=== PATIENT | female | born 2000 | race African-American/Black ===

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

== ENCOUNTER 2018-05-16 15:33 | Inpatient (IN) ==
[2018-05-16] MEDS ORDERED: LACTATED RINGERS 250 ML IV ONE (17:02)
[2018-05-16] MEDS ORDERED: LACTATED RINGERS 500 ML IV PRN (17:02)
[2018-05-16] MEDS ORDERED: ACETAMINOPHEN 325 MG TABLET PO PRN (17:02)
[2018-05-16] MEDS ORDERED: ONDANSETRON 4 MG/2 ML VIAL IV PRN (17:02)
[2018-05-16] MEDS ORDERED: MEPERIDINE 50 MG/1 ML VIAL IV PRN (17:02)
[2018-05-16] MEDS ORDERED: BUTORPHANOL 2 MG/ML VIAL IV PRN (17:02)
[2018-05-16] MEDS ORDERED: PENICILLIN G POTASSIUM INJ 5,000,000 UNIT in SODIUM CHLORIDE 0.9% 100 ML IV ONE (17:06)
[2018-05-16] MEDS ORDERED: PENICILLIN G POTASSIUM INJ 6,000,000 UNIT in SODIUM CHLORIDE 0.9% 100 ML IV ONE (17:10)
[2018-05-16 17:27] LABS: Apearance,Urine Slightly Hazy (Clear); Bilirubin,Urine Negative (Negative); Blood, Urine Negative (Negative); Glucose,Urine (UA) Negative (Negative); Ketones,Urine Negative (Negative); Mucus,Urine Many /LPF (Occasional); Nitrite,Urine Negative (Negative); Protein,Urine 30 MG/DL; RBC,Urine 6 /HPF (0-4); Squamous Epithelial Cell,Urine Occasional /HPF (0-10); Urine Color Amber (Yellow); Urine Specific Gravity 1.027 (1.001-1.035); WBC,Urine 20 /HPF (0-6)
[2018-05-16] MEDS: LACTATED RINGERS 1,000 ML IV SCH ×2 (17:30→20:24)
[2018-05-16] MEDS: OXYTOCIN/LR 20 UNIT/1,000 ML BAG IV SCH (17:35)
[2018-05-16 18:11] LABS: Basophils % 0.2 % (0.0-0.8); Eosinophils % 0.3 % (0.00-10.9); Hematocrit 27.1 VOL% (35.7-47.0); Hemoglobin 7.8 GM/DL (12.0-16.0); Immature Granulocytes % 0.8 %; Immature Granulocytes Absolute 0.09 #; Lymphocytes # 2.1 10*3/uL (1.4-4.0); Lymphocytes % 19.1 % (21.3-54.2); Mean Corpuscular HGB Conc 28.8 GM/DL (32-36); Mean Corpuscular Hemoglobin 19 PG (27-34); Mean Corpuscular Volume 67.4 FL (87-102); Mean Platelet Volume 9.8 FL (9.6-12.0); Monocytes # 0.9 10*3/uL (0.11-0.8); NRBC # 0.04 10*3/uL; Neutrophils # 7.8 10*3/uL (1.4-7.4); Neutrophils % 71.6 % (38.7-73.9); Platelet Count 320 T/CUMM (130-400); Red Blood Count 4.02 MC/CUMM (3.8-5.5); Red Cell Distribution Width 18.1 % (9.3-17.3); White Blood Count 10.9 T/CUMM (4-12)
[2018-05-16 18:36] LABS: Albumin 2.7 G/DL (3.4-5.0); Calcium 8.7 MG/DL (8.5-10.1); Osmolality,Calculated 270.8 MOS/KG (273-304); Potassium 3.6 MMOL/L (3.5-5.1)
[2018-05-16] MEDS ORDERED: CITRIC ACID/SODIUM CITRATE 30 ML UDCUP PO ONE (19:36)
[2018-05-16] MEDS ORDERED: FAMOTIDINE 20 MG/2 ML VIAL IV ONE (19:36)
[2018-05-16 19:42] LABS: Hypochromasia 2+; Microcytosis 1+; Platelet Estimate Adequate
[2018-05-16] MEDS ORDERED: fentaNYL 2 MCG/ROPIV 0.2% EPID 100 ML EPIDURAL SCH (20:00)
[2018-05-16] MEDS ORDERED: miSOPROStol 200 MCG TABLET ONE (20:16)
[2018-05-16] MEDS ORDERED: LIDOCAINE 1% 50 ML VIAL ONE (20:16)
[2018-05-16] MEDS ORDERED: ePHEDrine 50 MG/ML AMP ONE (20:17)
[2018-05-16 22:12] LABS: Apearance,Urine CLEAR (Clear); Bacteria,Urine Occasional /HPF (Few); Bilirubin,Urine Negative (Negative); Blood, Urine Negative (Negative); Glucose,Urine (UA) Negative (Negative); Ketones,Urine 5 mg/dL (Negative); Mucus,Urine Occasional /LPF (Occasional); Nitrite,Urine Negative (Negative); Protein,Urine Negative; RBC,Urine <1 /HPF (0-4); Squamous Epithelial Cell,Urine Occasional /HPF (0-10); Urine Color Yellow (Yellow); Urine Specific Gravity 1.031 (1.001-1.035); WBC,Urine <1 /HPF (0-6)
[2018-05-16] MEDS: PENICILLIN G POTASSIUM INJ 3,000,000 UNIT in SODIUM CHLORIDE 0.9% 100 ML IV SCH (22:26)
[2018-05-17] MEDS: PENICILLIN G POTASSIUM INJ 3,000,000 UNIT in SODIUM CHLORIDE 0.9% 100 ML IV SCH (02:05)
[2018-05-17] MEDS ORDERED: OXYTOCIN/LR 30 UNIT/1,000 ML BAG IV ONE (02:32)
[2018-05-17] MEDS ORDERED: RHO(D) IMMUNE GLOBULIN 300 MCG SYRINGE IM ONE (03:44)
[2018-05-17] MEDS ORDERED: BISACODYL 10 MG SUPP RECTAL PRN (03:44)
[2018-05-17] MEDS ORDERED: WITCH HAZEL PADS 100/JAR TOP PRN (03:44)
[2018-05-17] MEDS ORDERED: DIPH/TET/ACEL PERT BOOSTER VACCINE 0.5 ML VIAL IM ONE (03:44)
[2018-05-17] MEDS ORDERED: ACETAMINOPHEN 325 MG TABLET PO PRN (03:44)
[2018-05-17] MEDS ORDERED: HYDROCORTISONE 2.5% RECTAL CREAM 30 GM TUBE TOP PRN (03:44)
[2018-05-17] MEDS ORDERED: MEASLES/MUMPS/RUBELLA VACCINE 0.5 ML VIAL SUBCUT ONE (03:44)
[2018-05-17] MEDS ORDERED: LANOLIN 50% CREAM 0.3 OZ TUBE TOP PRN (03:44)
[2018-05-17] MEDS ORDERED: oxyCODONE/ACETAMINOPHEN 5-325 MG TABLET PO PRN (03:44)
[2018-05-17] MEDS ORDERED: BENZOCAINE 20%/MENTHOL 0.5% SPRAY 56 GM CAN TOP PRN (03:44)
[2018-05-17] MEDS: IBUPROFEN 800 MG TABLET PO SCH ×4 (03:54→23:07)
[2018-05-17 05:29] LABS: Basophils % 0.3 % (0.0-0.8); Eosinophils % 0.3 % (0.00-10.9); Hematocrit 25.8 VOL% (35.7-47.0); Hemoglobin 7.3 GM/DL (12.0-16.0); Immature Granulocytes % 0.6 %; Immature Granulocytes Absolute 0.09 #; Lymphocytes # 2.5 10*3/uL (1.4-4.0); Lymphocytes % 17.4 % (21.3-54.2); Mean Corpuscular HGB Conc 28.3 GM/DL (32-36); Mean Corpuscular Hemoglobin 19 PG (27-34); Mean Corpuscular Volume 66.7 FL (87-102); Mean Platelet Volume 9.7 FL (9.6-12.0); Monocytes # 0.8 10*3/uL (0.11-0.8); Monocytes % 5.5 % (1.7-12.7); NRBC # 0.02 10*3/uL; Neutrophils # 10.9 10*3/uL (1.4-7.4); Neutrophils % 75.9 % (38.7-73.9); Platelet Count 262 T/CUMM (130-400); Red Blood Count 3.87 MC/CUMM (3.8-5.5); White Blood Count 14.3 T/CUMM (4-12)
[2018-05-17] MEDS: OXYTOCIN/LR 20 UNIT/1,000 ML BAG IV SCH (05:41)
[2018-05-17 05:57] LABS: Hypochromasia 1+; Microcytosis 1+; Ovalocytes Slight; Platelet Estimate Adequate
[2018-05-17] MEDS: oxyCODONE/ACETAMINOPHEN 5-325 MG TABLET PO PRN ×3 (06:24→20:44)
[2018-05-17] MEDS: DOCUSATE SODIUM 100 MG CAPSULE PO SCH ×2 (09:00→20:45)
[2018-05-17] MEDS: IRON (CARBONYL)/VIT C/B12/FA TABLET PO SCH (09:00)
[2018-05-18] MEDS: DOCUSATE SODIUM 100 MG CAPSULE PO SCH ×2 (08:30→20:57)
[2018-05-18] MEDS: IRON (CARBONYL)/VIT C/B12/FA TABLET PO SCH (08:30)
[2018-05-18] MEDS: oxyCODONE/ACETAMINOPHEN 5-325 MG TABLET PO PRN ×2 (08:32→17:53)
[2018-05-18] MEDS: IBUPROFEN 800 MG TABLET PO SCH ×2 (13:37→20:56)
[2018-05-19] MEDS: IRON (CARBONYL)/VIT C/B12/FA TABLET PO SCH (08:24)
[2018-05-19] MEDS: DOCUSATE SODIUM 100 MG CAPSULE PO SCH (08:24)
[2018-05-19 08:55] VITALS: BP 136/95
[2018-05-19] MEDS: IBUPROFEN 800 MG TABLET PO SCH (12:04)
== END 2018-05-19 12:58 | disposition home or self-care (01) | DRG 560 ==
LOC: N.LDOUT 15:33 → N.LD 15:35 → N.OB 05-17 05:49
PROVIDERS: ADMIT Obstetrics & Gynecology; ATTEND Obstetrics & Gynecology

== ENCOUNTER 2019-07-24 08:46 | Inpatient (IN) ==
[2019-07-24] MEDS ORDERED: MEPERIDINE 50 MG/1 ML VIAL IV PRN (09:05)
[2019-07-24] MEDS ORDERED: BUTORPHANOL 2 MG/ML VIAL IV PRN (09:05)
[2019-07-24] MEDS ORDERED: ONDANSETRON 4 MG/2 ML VIAL IV PRN (09:05)
[2019-07-24] MEDS ORDERED: diphenhydrAMINE 50 MG/1 ML VIAL IV PRN ×2 (09:24)
[2019-07-24] MEDS ORDERED: NALOXONE 0.4 MG/ML VIAL IV PRN (09:24)
[2019-07-24] MEDS ORDERED: CITRIC ACID/SODIUM CITRATE 30 ML UDCUP PO ONE (09:24)
[2019-07-24] MEDS ORDERED: LACTATED RINGERS 1,000 ML IV ONE (09:24)
[2019-07-24] MEDS ORDERED: PROMETHAZINE 25 MG/1 ML VIAL IM ONE (09:24)
[2019-07-24] MEDS ORDERED: ePHEDrine 50 MG/ML AMP IV PRN (09:24)
[2019-07-24] MEDS ORDERED: FAMOTIDINE 20 MG/2 ML VIAL IV ONE (09:24)
[2019-07-24] MEDS ORDERED: OXYTOCIN/LR 20 UNIT/1,000 ML BAG IV SCH (09:30)
[2019-07-24] MEDS ORDERED: LACTATED RINGERS 1,000 ML IV SCH (09:30)
[2019-07-24] MEDS ORDERED: fentaNYL 2 MCG/ROPIV 0.2% EPID 100 ML EPIDURAL SCH (09:30)
[2019-07-24 09:42] LABS: Basophils % 0.3 % (0.0-0.8); Eosinophils # 0.2 10*3/uL (0.0-0.87); Eosinophils % 1.7 % (0.00-10.9); Hematocrit 29.6 VOL% (35.7-47.0); Hemoglobin 8.6 GM/DL (12.0-16.0); Immature Granulocytes % 1.2 %; Immature Granulocytes Absolute 0.12 #; Lymphocytes # 2.9 10*3/uL (1.4-4.0); Lymphocytes % 27.5 % (21.3-54.2); Mean Corpuscular HGB Conc 29.1 GM/DL (32-36); Mean Corpuscular Volume 65.9 FL (87-102); Mean Platelet Volume 9.3 FL (9.6-12.0); NRBC # 0.09 10*3/uL; Neutrophils % 60.3 % (38.7-73.9); Platelet Count 316 T/CUMM (130-400); Red Blood Count 4.49 MC/CUMM (3.8-5.5); Red Cell Distribution Width 17.8 % (9.3-17.3); White Blood Count 10.4 T/CUMM (4-12)
[2019-07-24] MEDS ORDERED: PENICILLIN G POTASSIUM INJ 6,000,000 UNIT in SODIUM CHLORIDE 0.9% 100 ML IV ONE (10:00)
[2019-07-24 11:41] LABS: Barbiturates Screen,Urine Negative (Negative); Benzodiazepines Screen,Urine Negative (Negative); Cannabinoid Screen,Urine Positive (Negative); Opiate Screen,Urine Negative (Negative); Phencyclidine Screen,Urine Negative (Negative)
[2019-07-24 11:42] LABS: Apearance,Urine CLEAR (Clear); Bilirubin,Urine Negative (Negative); Blood, Urine Moderate mg/dL (Negative); Glucose,Urine (UA) Negative (Negative); Ketones,Urine 20 mg/dL (Negative); Mucus,Urine Occasional /LPF (Occasional); Nitrite,Urine Negative (Negative); Protein,Urine 30 MG/DL; RBC,Urine 122 /HPF (0-4); Squamous Epithelial Cell,Urine Occasional /HPF (0-10); Urine Color Yellow (Yellow); Urine Specific Gravity 1.026 (1.001-1.035); WBC,Urine <1 /HPF (0-6)
[2019-07-24] MEDS ORDERED: OXYTOCIN 10 UNIT/ML VIAL ONE (12:53)
[2019-07-24] MEDS ORDERED: miSOPROStoL 200 MCG TABLET ONE (12:53)
[2019-07-24] MEDS ORDERED: METHYLERGONOVINE 0.2 MG/1 ML AMP ONE (12:53)
[2019-07-24] MEDS ORDERED: FLUCONAZOLE 150 MG TABLET PO ONE (13:20)
[2019-07-24] MEDS: KETOROLAC 30 MG/1 ML VIAL IV SCH ×2 (16:08→21:29)
[2019-07-24] MEDS ORDERED: SIMETHICONE CHEW 80 MG TABLET PO PRN (16:28)
[2019-07-24] MEDS ORDERED: DEXTROSE 10% 250 ML BAG IV PRN (16:28)
[2019-07-24] MEDS ORDERED: OXYTOCIN/LR 20 UNIT/1,000 ML BAG IV ONE (16:28)
[2019-07-24] MEDS ORDERED: GLUCAGON 1 MG VIAL IM PRN (16:28)
[2019-07-24] MEDS ORDERED: MAGNESIUM HYDROXIDE SUSP 30 ML UDCUP PO PRN (16:28)
[2019-07-24] MEDS ORDERED: RHO(D) IMMUNE GLOBULIN 300 MCG SYRINGE IM ONE (16:28)
[2019-07-24] MEDS: DOCUSATE SODIUM 100 MG CAPSULE PO SCH (21:29)
[2019-07-25] MEDS: ACETAMINOPHEN 500 MG TABLET PO SCH ×7 (00:05→22:31)
[2019-07-25] MEDS: KETOROLAC 30 MG/1 ML VIAL IV SCH ×2 (04:00→10:00)
[2019-07-25 05:32] LABS: Basophils % 0.4 % (0.0-0.8); Eosinophils # 0.2 10*3/uL (0.0-0.87); Hematocrit 26.1 VOL% (35.7-47.0); Hemoglobin 7.3 GM/DL (12.0-16.0); Immature Granulocytes % 1.2 %; Immature Granulocytes Absolute 0.13 #; Lymphocytes # 3.2 10*3/uL (1.4-4.0); Lymphocytes % 29.9 % (21.3-54.2); Monocytes % 10.1 % (1.7-12.7); NRBC # 0.03 10*3/uL; Neutrophils % 56.4 % (38.7-73.9); Platelet Count 287 T/CUMM (130-400); Red Blood Count 3.78 MC/CUMM (3.8-5.5); Red Cell Distribution Width 17.5 % (9.3-17.3); White Blood Count 10.8 T/CUMM (4-12)
[2019-07-25 06:01] LABS: Hypochromasia 2+
[2019-07-25 06:02] LABS: Anisocytosis 1+; Microcytosis 1+; Ovalocytes Slight; Platelet Estimate Normal; Polychromasia Slight
[2019-07-25] MEDS: INSULIN REGULAR 100 UNIT/ML SUBCUT SCH ×4 (09:30→21:10)
[2019-07-25] MEDS: MULTIVITAMIN (PRENATAL) TABLET PO SCH (09:30)
[2019-07-25] MEDS: DOCUSATE SODIUM 100 MG CAPSULE PO SCH ×2 (09:34→21:05)
[2019-07-25] MEDS: IBUPROFEN 800 MG TABLET PO SCH ×2 (15:36→22:31)
[2019-07-25] MEDS ORDERED: IRON (CARBONYL)/VIT C/B12/FA TABLET PO SCH (17:00)
[2019-07-25] MEDS: FERROUS SULFATE 325 MG TABLET PO SCH (21:05)
[2019-07-26] MEDS: ACETAMINOPHEN 500 MG TABLET PO SCH ×2 (05:54→12:27)
[2019-07-26] MEDS: IBUPROFEN 800 MG TABLET PO SCH ×2 (05:54→14:08)
[2019-07-26 07:28] VITALS: BP 131/68
[2019-07-26] MEDS: MULTIVITAMIN (PRENATAL) TABLET PO SCH (09:50)
[2019-07-26] MEDS: FERROUS SULFATE 325 MG TABLET PO SCH (09:50)
[2019-07-26] MEDS: DOCUSATE SODIUM 100 MG CAPSULE PO SCH (09:50)
[2019-07-26] MEDS: INSULIN REGULAR 100 UNIT/ML SUBCUT SCH (12:26)
[2019-07-26 14:33] LABS: Apearance,Urine CLEAR (Clear); Bilirubin,Urine Negative (Negative); Blood, Urine Moderate mg/dL (Negative); Calcium Oxalate Crystals,Urine Occasional /HPF (Few); Glucose,Urine (UA) Negative (Negative); Ketones,Urine Negative (Negative); Mucus,Urine Occasional /LPF (Occasional); Nitrite,Urine Negative (Negative); Protein,Urine 30 MG/DL; RBC,Urine 70 /HPF (0-4); Squamous Epithelial Cell,Urine Occasional /HPF (0-10); Urine Color Yellow (Yellow); Urine Specific Gravity 1.033 (1.001-1.035); Urine Urobilinogen < 2.0 EU/DL (0.2-1.0); WBC,Urine 3 /HPF (0-6)
[2019-07-26] MEDS ORDERED: DIPH/TET/ACEL PERT BOOSTER VACCINE 0.5 ML VIAL IM ONE (15:26)
== END 2019-07-26 18:00 | disposition home or self-care (01) | DRG 998 ==
LOC: N.LDOUT 08:46 → N.LD 08:49 → N.OB 16:14
PROVIDERS: ADMIT Obstetrics & Gynecology; ATTEND Obstetrics & Gynecology

== ENCOUNTER 2020-06-07 19:07 | Inpatient (IN) ==
[2020-06-07] MEDS ORDERED: SODIUM CHLORIDE 0.9% 1,000 ML IV STA ×2 (19:41→20:50)
[2020-06-07 19:57] LABS: Basophils # 0.1 10*3/uL (0.0-0.2); Basophils % 0.7 % (0.0-0.8); Eosinophils # 0.1 10*3/uL (0.0-0.87); Eosinophils % 0.7 % (0.00-10.9); Hematocrit 43.5 VOL% (35.7-47.0); Hemoglobin 13.6 GM/DL (12.0-16.0); Immature Granulocytes % 0.3 %; Immature Granulocytes Absolute 0.02 #; Lymphocytes # 2.2 10*3/uL (1.4-4.0); Lymphocytes % 29.6 % (21.3-54.2); Mean Corpuscular HGB Conc 31.3 GM/DL (32-36); Mean Platelet Volume 11.1 FL (9.6-12.0); Neutrophils % 60.7 % (38.7-73.9); Platelet Count 414 T/CUMM (130-400); Red Blood Count 5.72 MC/CUMM (3.8-5.5); Red Cell Distribution Width 15.5 % (9.3-17.3); White Blood Count 7.5 T/CUMM (4-12)
[2020-06-07 20:12] LABS: PT Patient Result 10.5 SECS (9.8-11.9); Partial Thromboplastin Time 27.4 SECS (23.9-33.8)
[2020-06-07 20:21] LABS: Albumin 4.1 G/DL (3.4-5.0); Bilirubin,Total 1.8 MG/DL (0.2-1.0); Calcium 9.4 MG/DL (8.5-10.1); Osmolality,Calculated 288.5 MOS/KG (273-304); Potassium 4.3 MMOL/L (3.5-5.1); Total Protein 9.1 G/DL (5.0-7.5)
[2020-06-07] MEDS ORDERED: INSULIN REGULAR 100 UNIT/ML IV STA (20:29)
[2020-06-07 21:15] LABS: ABG Base Excess -8.4 MMOL/L (-2.5-2.5); ABG HCO3 17.7 MMOL/L (20-26); ABG Oxygen Saturation 96.9 % (95-100); ABG PCO2 30.9 MM HG (35-48); ABG PH 7.334 (7.35-7.45); ABG PO2 98.3 MM HG (80-95); ABG TCO2 14.6 MMOL/L (23-27)
[2020-06-07 21:28] LABS: Bilirubin,Urine Negative (Negative); Blood, Urine Negative (Negative); Glucose,Urine (UA) >=500 mg/dL (Negative); Ketones,Urine 80 mg/dL (Negative); Mucus,Urine Occasional /LPF (Occasional); Nitrite,Urine Negative (Negative); Protein,Urine Negative; RBC,Urine 2 /HPF (0-4); Squamous Epithelial Cell,Urine Occasional /HPF (0-10); Urine Appearance CLEAR (Clear); Urine Color Straw (Yellow); Urine Specific Gravity 1.031 (1.001-1.035); Urine Urobilinogen < 2.0 EU/DL (0.2-1.0); WBC,Urine 1 /HPF (0-6)
[2020-06-07] MEDS ORDERED: INSULIN REGULAR 100 UNIT/ML IV ONE (21:50)
[2020-06-07] MEDS ORDERED: SODIUM BICARB INJ 100 MEQ in STERILE WATER INJ 400 ML IV PRN (21:50)
[2020-06-07] MEDS ORDERED: DEXTROSE 50% 25 GM/50 ML VIAL IV PRN ×2 (21:50)
[2020-06-07] MEDS ORDERED: SODIUM PHOSPHATE IV PRN (21:50)
[2020-06-07] MEDS ORDERED: MAGNESIUM SULF RIDER 4 GM in PREMIX 1 EACH IV PRN (21:50)
[2020-06-07] MEDS ORDERED: POTASSIUM CHLORIDE RIDER 10 MEQ in PREMIX 1 EACH IV PRN (21:50)
[2020-06-07] MEDS ORDERED: SODIUM CHLORIDE 0.9% IV PRN (21:50)
[2020-06-07] MEDS ORDERED: SODIUM CHLORIDE 0.9% 1,000 ML IV ONE (21:50)
[2020-06-07] MEDS ORDERED: MAGNESIUM SULF RIDER 2 GM in PREMIX 1 EACH IV PRN (21:50)
[2020-06-07] MEDS ORDERED: ALBUTEROL 2.5 MG/3 ML NEB RESP TX PRN (21:51)
[2020-06-07] MEDS: SODIUM CHLORIDE 0.9% 1,000 ML IV SCH (22:53)
[2020-06-07] MEDS ORDERED: INSULIN REGULAR DRIP 100 ML IV PRN (23:20)
[2020-06-08 01:06] LABS: Osmolality,Calculated 287.4 MOS/KG (273-304); Potassium 3.7 MMOL/L (3.5-5.1)
[2020-06-08] MEDS: SODIUM CHLORIDE 0.9% 1,000 ML IV SCH (01:50)
[2020-06-08] MEDS: ENOXAPARIN 40 MG/0.4 ML SYRINGE SUBCUT SCH (02:14)
[2020-06-08 02:43] LABS: ABG Base Excess -8.1 MMOL/L (-2.5-2.5); ABG HCO3 17.9 MMOL/L (20-26); ABG Oxygen Saturation 97.5 % (95-100); ABG PCO2 36.1 MM HG (35-48); ABG PH 7.299 (7.35-7.45)
[2020-06-08] MEDS ORDERED: SODIUM CHLORIDE 0.9% 1,000 ML IV SCH (02:50)
[2020-06-08] MEDS ORDERED: DEXTROSE 5% NACL 0.9% 1,000 ML IV SCH (03:30)
[2020-06-08 05:18] LABS: Basophils % 0.5 % (0.0-0.8); Eosinophils # 0.1 10*3/uL (0.0-0.87); Eosinophils % 1.8 % (0.00-10.9); Hematocrit 36.2 VOL% (35.7-47.0); Hemoglobin 11.3 GM/DL (12.0-16.0); Immature Granulocytes % 0.2 %; Immature Granulocytes Absolute 0.01 #; Lymphocytes # 2.5 10*3/uL (1.4-4.0); Lymphocytes % 44.8 % (21.3-54.2); Mean Corpuscular HGB Conc 31.2 GM/DL (32-36); Mean Corpuscular Volume 75.6 FL (87-102); Mean Platelet Volume 10.6 FL (9.6-12.0); Monocytes % 9.8 % (1.7-12.7); Neutrophils % 42.9 % (38.7-73.9); Platelet Count 309 T/CUMM (130-400); Red Blood Count 4.79 MC/CUMM (3.8-5.5); Red Cell Distribution Width 15.5 % (9.3-17.3); White Blood Count 5.5 T/CUMM (4-12)
[2020-06-08 05:49] LABS: Calcium 7.8 MG/DL (8.5-10.1); Osmolality,Calculated 284.1 MOS/KG (273-304); Potassium 3.3 MMOL/L (3.5-5.1)
[2020-06-08 06:02] LABS: ABG Base Excess -5.3 MMOL/L (-2.5-2.5); ABG HCO3 20.1 MMOL/L (20-26); ABG Oxygen Saturation 97.7 % (95-100); ABG PCO2 35.7 MM HG (35-48); ABG PH 7.349 (7.35-7.45); ABG TCO2 17.7 MMOL/L (23-27); Allen Test Positive; Pt O2 Delivery Device Room Air
[2020-06-08] MEDS ORDERED: DEXT 5% NACL 0.45% KCL 20 MEQ 20 MEQ/1,000 ML BAG IV SCH (06:30)
[2020-06-08] MEDS ORDERED: MAGNESIUM SULF RIDER 2 GM in PREMIX 1 EACH IV ONE (07:51)
[2020-06-08] MEDS ORDERED: GLUCAGON 1 MG VIAL IM PRN (07:52)
[2020-06-08 08:20] LABS: Calcium 7.5 MG/DL (8.5-10.1); Potassium 3.5 MMOL/L (3.5-5.1)
[2020-06-08] MEDS: INSULIN LISPRO 100 UNIT/ML SUBCUT SCH ×4 (08:20→22:34)
[2020-06-08] MEDS: INSULIN GLARGINE 100 UNIT/ML SUBCUT SCH ×2 (08:23→08:42)
[2020-06-08] MEDS: POTASSIUM CHLORIDE 20 MEQ TABLET PO SCH ×4 (08:23→22:47)
[2020-06-08] MEDS: PANTOPRAZOLE 40 MG TABLET PO SCH (08:47)
[2020-06-08] MEDS ORDERED: POTASSIUM PHOSPHATE 30 MMOL in SODIUM CHLORIDE 0.9% 250 ML IV ONE (09:00)
[2020-06-08] MEDS: NYSTATIN 500,000 UNIT/5 ML UDCUP SWISH/SWAL SCH ×3 (12:03→22:34)
[2020-06-08] MEDS ORDERED: SODIUM CHLORIDE 0.45% 1,000 ML IV SCH (14:50)
[2020-06-09] MEDS: INSULIN LISPRO 100 UNIT/ML SUBCUT SCH ×8 (01:52→20:41)
[2020-06-09] MEDS: ENOXAPARIN 40 MG/0.4 ML SYRINGE SUBCUT SCH (01:52)
[2020-06-09 05:09] LABS: Calcium 7.8 MG/DL (8.5-10.1); Osmolality,Calculated 281.5 MOS/KG (273-304); Potassium 3.4 MMOL/L (3.5-5.1)
[2020-06-09] MEDS: NYSTATIN 500,000 UNIT/5 ML UDCUP SWISH/SWAL SCH ×4 (08:15→20:38)
[2020-06-09] MEDS: PANTOPRAZOLE 40 MG TABLET PO SCH (08:16)
[2020-06-09] MEDS: INSULIN GLARGINE 100 UNIT/ML SUBCUT SCH (08:16)
[2020-06-09] MEDS: POTASSIUM CHLORIDE 20 MEQ TABLET PO SCH ×2 (10:38→14:58)
[2020-06-09] MEDS ORDERED: ACETAMINOPHEN 325 MG TABLET PO PRN (21:19)
[2020-06-10] MEDS: ENOXAPARIN 40 MG/0.4 ML SYRINGE SUBCUT SCH (00:37)
[2020-06-10 06:28] LABS: Calcium 8.3 MG/DL (8.5-10.1); Osmolality,Calculated 281.5 MOS/KG (273-304); Potassium 3.6 MMOL/L (3.5-5.1)
[2020-06-10] MEDS: INSULIN GLARGINE 100 UNIT/ML SUBCUT SCH (09:13)
[2020-06-10] MEDS: PANTOPRAZOLE 40 MG TABLET PO SCH (09:14)
[2020-06-10] MEDS: INSULIN LISPRO 100 UNIT/ML SUBCUT SCH ×3 (09:14→12:52)
[2020-06-10] MEDS: NYSTATIN 500,000 UNIT/5 ML UDCUP SWISH/SWAL SCH ×2 (09:15→12:53)
[2020-06-10 11:29] VITALS: BP 115/65
[2020-06-10] MEDS ORDERED: INSULIN LISPRO 100 UNIT/ML SUBCUT SCH ×2 (12:00→17:00)
[2020-06-11] MEDS ORDERED: INSULIN GLARGINE 100 UNIT/ML SUBCUT SCH (09:00)
== END 2020-06-10 15:48 | disposition home or self-care (01) | DRG 420 ==
LOC: N.ED 19:07 → N.EDINP 22:21 → SUATTDRO 22:21 → N.EDINP 22:25 → N.ICU 06-08 00:20 → N.4E 06-09 13:02
PROVIDERS: ADMIT Internal Medicine; ATTEND Internal Medicine

== ENCOUNTER 2021-11-02 16:15 | Observation (INO) ==
[2021-11-02 17:02] LABS: Bilirubin,Urine Negative (Negative); Blood, Urine Trace mg/dL (Negative); Glucose,Urine (UA) 500 mg/dL (Negative); Ketones,Urine >160 mg/dL (Negative); Nitrite,Urine Negative (Negative); Protein,Urine 100 mg/dL (Negative); Urine Appearance HAZY (Clear); Urine Color Yellow (Yellow); Urine Specific Gravity > 1.030 (1.001-1.035); Urine Urobilinogen 0.2 eU/dL (<2.0); Urine pH 5.5 (4.5-8.0)
[2021-11-02 17:03] LABS: Bacteria,Urine Rare /HPF (Few); Squamous Epithelial Cell,Urine TNTC /HPF (0-10)
[2021-11-02 17:04] LABS: Mucus,Urine Rare /LPF (Occasional)
[2021-11-02] MEDS ORDERED: SODIUM CHLORIDE 0.9% 250 ML IV ONE (17:40)
[2021-11-02] MEDS ORDERED: SODIUM CHLORIDE 0.9% 1,000 ML IV SCH ×2 (18:00→19:30)
[2021-11-02 18:27] LABS: Bilirubin,Total 0.6 MG/DL (0.20-1.00); Calcium 9.7 MG/DL (8.5-10.1); Osmolality,Calculated 269.8 MOS/KG (273-304); Potassium 4.4 MMOL/L (3.5-5.1); Total Protein 7.9 G/DL (6.4-8.2)
[2021-11-02 18:30] LABS: Basophils % 0.3 % (0.0-0.8); Eosinophils % 0.3 % (0.00-10.9); Hematocrit 40.3 VOL% (35.7-47.0); Hemoglobin 12.2 GM/DL (12.0-16.0); Immature Granulocytes % 0.6 %; Immature Granulocytes Absolute 0.04 #; Lymphocytes # 1.6 10*3/uL (1.4-4.0); Lymphocytes % 22.3 % (21.3-54.2); Mean Corpuscular HGB Conc 30.3 GM/DL (32-36); Mean Corpuscular Volume 75.2 FL (87-102); Mean Platelet Volume 10.6 FL (9.6-12.0); Monocytes # 0.7 10*3/uL (0.11-0.8); Monocytes % 9.1 % (1.7-12.7); Neutrophils % 67.4 % (38.7-73.9); Platelet Count 274 T/CUMM (130-400); Red Blood Count 5.36 MC/CUMM (3.8-5.5); Red Cell Distribution Width 14.5 % (9.3-17.3); White Blood Count 7.1 T/CUMM (4-12)
[2021-11-02 19:14] LABS: Barbiturates Screen,Urine Negative (Negative); Benzodiazepines Screen,Urine Negative (Negative); Cannabinoid Screen,Urine Negative (Negative); Opiate Screen,Urine Negative (Negative); Phencyclidine Screen,Urine Negative (Negative)
[2021-11-02] MEDS ORDERED: SODIUM CHLORIDE 0.9% 2,000 ML IV ONE (19:29)
[2021-11-02] MEDS: INSULIN REGULAR 100 UNIT/ML SUBCUT SCH ×4 (19:33→23:14)
[2021-11-02] MEDS ORDERED: GLUCAGON 1 MG VIAL IM PRN (19:33)
[2021-11-02] MEDS ORDERED: DEXTROSE 10% 250 ML BAG IV PRN ×2 (19:42→23:09)
[2021-11-02] MEDS ORDERED: INSULIN REGULAR 100 UNIT/ML SUBCUT ONE (19:55)
[2021-11-02] MEDS ORDERED: CALCIUM CARBONATE CHEW 500 MG TABLET PO PRN (20:01)
[2021-11-02] MEDS ORDERED: SODIUM CHLORIDE 0.9% 1,000 ML IV ONE (20:43)
[2021-11-02 22:29] LABS: Calcium 7.8 MG/DL (8.5-10.1); Osmolality,Calculated 278.7 MOS/KG (273-304); Potassium 3.5 MMOL/L (3.5-5.1)
[2021-11-02] MEDS ORDERED: POTASSIUM CHLORIDE RIDER 10 MEQ/100 ML PREMIX IV PRN (22:39)
[2021-11-02] MEDS: POTASSIUM CHLORIDE 20 MEQ TABLET PO PRN (23:29)
[2021-11-03] MEDS: INSULIN REGULAR 100 UNIT/ML SUBCUT SCH ×7 (00:41→12:55)
[2021-11-03] MEDS: SODIUM CHLORIDE 0.9% 1,000 ML IV SCH ×2 (00:42→03:01)
[2021-11-03] MEDS: POTASSIUM CHLORIDE 20 MEQ TABLET PO PRN ×2 (01:31→05:40)
[2021-11-03 02:13] LABS: Basophils % 0.2 % (0.0-0.8); Eosinophils % 0.5 % (0.00-10.9); Hematocrit 32.1 VOL% (35.7-47.0); Hemoglobin 9.7 GM/DL (12.0-16.0); Immature Granulocytes % 0.4 %; Immature Granulocytes Absolute 0.02 #; Lymphocytes # 1.7 10*3/uL (1.4-4.0); Lymphocytes % 29.7 % (21.3-54.2); Mean Corpuscular HGB Conc 30.2 GM/DL (32-36); Mean Platelet Volume 9.8 FL (9.6-12.0); Monocytes # 0.6 10*3/uL (0.11-0.8); Neutrophils % 58.2 % (38.7-73.9); Platelet Count 206 T/CUMM (130-400); Red Blood Count 4.28 MC/CUMM (3.8-5.5); Red Cell Distribution Width 14.5 % (9.3-17.3); White Blood Count 5.7 T/CUMM (4-12)
[2021-11-03 02:35] LABS: Phosphorous 2.6 MG/DL (2.5-4.9)
[2021-11-03 02:36] LABS: Calcium 8.1 MG/DL (8.5-10.1); Osmolality,Calculated 272.8 MOS/KG (273-304); Potassium 3.4 MMOL/L (3.5-5.1)
[2021-11-03] MEDS ORDERED: SODIUM CHLORIDE 0.9% 1,000 ML IV SCH (04:00)
[2021-11-03] MEDS: PANTOPRAZOLE 40 MG TABLET PO SCH ×2 (05:40→09:02)
[2021-11-03] MEDS ORDERED: MAGNESIUM SULF RIDER 2 GM/50 ML PREMIX IV PRN ×2 (05:52→06:10)
[2021-11-03] MEDS ORDERED: MAGNESIUM SULF RIDER 4 GM/100 ML PREMIX IV PRN (05:52)
[2021-11-03] MEDS ORDERED: DEXTROSE 5% NACL 0.9% 1,000 ML IV SCH (06:00)
[2021-11-03 06:44] LABS: Calcium 8.3 MG/DL (8.5-10.1); Osmolality,Calculated 272.8 MOS/KG (273-304); Potassium 3.7 MMOL/L (3.5-5.1)
[2021-11-03] MEDS ORDERED: LACTATED RINGERS 1,000 ML IV SCH ×2 (09:30→14:00)
[2021-11-03 12:26] LABS: Calcium 8.4 MG/DL (8.5-10.1); Potassium 3.7 MMOL/L (3.5-5.1)
[2021-11-03] MEDS ORDERED: SODIUM CHLORIDE 0.45% 1,000 ML IV SCH (16:00)
[2021-11-03] MEDS ORDERED: INSULIN REGULAR 100 UNIT/ML SUBCUT SCH (16:30)
[2021-11-03] MEDS ORDERED: INSULIN LISPRO 100 UNIT/ML SUBCUT SCH (17:00)
[2021-11-03] MEDS ORDERED: ACETAMINOPHEN 500 MG TABLET PO ONE (17:32)
[2021-11-03 17:38] LABS: Calcium 7.8 MG/DL (8.5-10.1); Osmolality,Calculated 275.8 MOS/KG (273-304); Potassium 3.7 MMOL/L (3.5-5.1)
[2021-11-03] MEDS ORDERED: INSULIN GLARGINE 100 UNIT/ML SUBCUT SCH ×2 (19:00→21:00)
== END 2021-11-04 14:49 | disposition home or self-care (01) ==
LOC: N.LD 16:15 → N.LDOUT 16:15 → N.LD 16:17
PROVIDERS: ADMIT Obstetrics & Gynecology; ATTEND Obstetrics & Gynecology